=== PATIENT | female | born 1990 | race Caucasian/White ===

== ENCOUNTER → 2020-11-01 | Outpatient (CLI) | payer BC ==
[~2020-11-01] MED LIST: FLEXERIL PO; IBUPROFEN 600600 M1 PO; NOHOMEMEDICATIONS; PERCOCET 5-3251 EACH PO
== END ==
LOC: RAD 15:23
PROVIDERS: ATTEND Nurse Practitioner
DX: R10.32 Left lower quadrant pain (principal)

== ENCOUNTER → 2020-11-30 | Outpatient (CLI) | payer BC | LOC: RAD 14:43 | PROVIDERS: ATTEND Nurse Practitioner | DX: M79.2 Neuralgia and neuritis, unspecified (principal); M54.2 Cervicalgia; R51.9 Headache, unspecified ==